=== PATIENT | female | born 1945 | race Two or more races ===

== ENCOUNTER → 2019-07-04 | Outpatient (CLI) | payer MEDICARE, OTHER | LOC: WI 11:00 | PROVIDERS: ATTEND Physician Assistant | DX: Z12.31 Encounter for screening mammogram for malignant neoplasm of breast (principal) | CPT/HCPCS: 77063; 77067 ==

== ENCOUNTER → 2019-11-01 | Outpatient (CLI) | payer MEDICARE ==
[2019-11-01 13:08] LABS: ABSOLUTE EOSINOPHILS # (AUTO) 0.5 10^3/uL (0.0-0.6); ABSOLUTE LYMPHOCYTES (AUTO) 1.6 10^3/uL (0.5-4.7); ABSOLUTE MONOCYTES (AUTO) 0.4 10^3/uL (0.1-1.4); ABSOLUTE NEUT (AUTO) 3.2 10^3/uL (1.7-8.2); BASOPHILS % (AUTO) 0.5 % (0-2); EOSINOPHILS % (AUTO) 9.2 % (0-6); HEMATOCRIT 41.1 % (36.0-47.0); HEMOGLOBIN 14.2 g/dL (12.0-15.5); LYMPHOCYTES % (AUTO) 27.6 % (13-45); MEAN CORPUSCULAR HEMOGLOBIN 33.9 pg (27.0-33.4); MEAN CORPUSCULAR HGB CONC 34.6 g/dL (32.0-36.0); MEAN CORPUSCULAR VOLUME 98 fl (80-97); MONOCYTES % (AUTO) 7.5 % (3-13); PLATELET COUNT 180 10^3/uL (150-450); RED CELL DISTRIBUTION WIDTH 14.2 % (11.5-14.0); SEGMENTED NEUTROPHILS % (AUTO) 55.2 % (42-78); TOTAL CELLS COUNTED % (AUTO) 100 %; WHITE BLOOD COUNT 5.8 10^3/uL (4.0-10.5)
[2019-11-01 13:30] LABS: ALBUMIN 4.6 g/dL (3.5-5.0); ALKALINE PHOSPHATASE 115 U/L (38-126); ANION GAP 13 (5-19); ASPARTATE AMINO TRANSFERASE 88 U/L (14-36); BILIRUBIN,DIRECT 0.4 mg/dL (0.0-0.4); BILIRUBIN,TOTAL 0.7 mg/dL (0.2-1.3); BLOOD UREA NITROGEN 17 mg/dL (7-20); CALCIUM 10.3 mg/dL (8.4-10.2); CARBON DIOXIDE 27 mmol/L (22-30); CHLORIDE 101 mmol/L (98-107); GLUCOSE 171 mg/dL (75-110); POTASSIUM 4.1 mmol/L (3.6-5.0); TOTAL PROTEIN 8.4 g/dL (6.3-8.2)
== END ==
LOC: OD 12:10
PROVIDERS: ATTEND Orthopaedic Surgery Hand Surgery
DX: I10 Essential (primary) hypertension (principal); Z11.2 Encounter for screening for other bacterial diseases; E11.9 Type 2 diabetes mellitus without complications
CPT/HCPCS: 36415; 80053; 83036; 85025; 87070

== ENCOUNTER → 2020-06-14 | Outpatient (CLI) | payer MEDICARE ==
--- NOTE | 2020-06-15 17:57 | RADIOLOGY REPORT (SQ) ---
EXAM DESCRIPTION: MRI RT UPPER JOINT WITHOUT IMAGES COMPLETED DATE/TIME: 06/14/2020 7:50 am REASON FOR STUDY: PAIN IN R SHOULDER M25.511 PAIN IN RIGHT SHOULDER COMPARISON: None. TECHNIQUE: Right shoulder images acquired and stored on PACS. Multiplanar imaging to include fat sen sitive sequences such as T1, water sensitive sequences such as FST2/STIR, cartilage sensitive sequenc es such as FSPD/gradient-echo sequences. LIMITATIONS: None. FINDINGS: BONE MARROW AND CORTEX: No worrisome bone lesions or marrow replacement. No occult fractur es. JOINT OR BURSAL EFFUSION: Small intra and extra-articular effusion. GLENO-HUMERAL ARTICULATION: Superior migration of the humeral head with respect to the glenoid. No s ignificant cartilaginous loss. ACROMION AND AC JOINT: Type 1 acromion presumed previous surgical resection of the distal clavicle. ROTATOR CUFF AND INTERVAL: Complete full-thickness tear of the supraspinatus with retraction to the l evel of the glenoid. Involvement of the superior infraspinatus. Subscapularis appears intact. No rotator interval tear. No rotator interval thickening to suggest adhesive capsulitis. LABRUM AND BICEPS LABRAL COMPLEX: Degenerative changes of the labrum. Distal biceps in its normal anatomic location. REMAINDER OF LABRUM AND IGHL : No gross tear or paralabral cyst formation. Labral evaluation is less than optimal without joint distention. No thickening of IGHL to suggest adhesive capsulitis. PERIARTICULAR AND ADJACENT SOFT TISSUES: No masses or abnormal nodes. OTHER: Signal artifact from prior surgery. IMPRESSION: Complete full-thickness tear of the supraspinatus extending to the superior infraspinatu s. Generalize cuff muscle atrophy. Superior migration of the humeral head with respect to the glenoid. TECHNICAL DOCUMENTATION: JOB ID: [id number] 2010 [employer]- All Rights Reserved Reading location - IP/workstation name: [email or web address]
== END ==
LOC: RAD 06:40
PROVIDERS: ATTEND Specialist/Technologist Athletic Trainer
DX: M75.121 Complete rotator cuff tear or rupture of right shoulder, not specified as traumatic (principal); M62.511 Muscle wasting and atrophy, not elsewhere classified, right shoulder; M25.511 Pain in right shoulder

== ENCOUNTER → 2020-06-15 | Outpatient (CLI) | payer MEDICARE ==
--- NOTE | 2020-06-15 08:32 | RADIOLOGY REPORT (SQ) ---
EXAM DESCRIPTION: MRI CERVICAL SPINE WITHOUT IMAGES COMPLETED DATE/TIME: 06/15/2020 7:57 am REASON FOR STUDY: CERVICAL RADICULOPATHY M54.12 RADICULOPATHY, CERVICAL REGION COMPARISON: None. TECHNIQUE: Sagittal and Axial imaging includes T1, T2, STIR and gradient echo sequences. LIMITATIONS: None. FINDINGS: ALIGNMENT: There is reversal of the normal cervical lordosis. Very slight anterolisthesis of C7 on T1. VERTEBRAE: Intact. BONE MARROW: Normal. No marrow replacement or reactive changes. DISCS: Loss of height and signal throughout the cervical spine. HARDWARE: None in the spine. CORD AND BASE OF BRAIN: Normal in size and signal intensity. SOFT TISSUES: No soft tissue masses. C1-C2: No significant spinal stenosis. C2-C3: No significant spinal stenosis or exit foraminal stenosis. C3-C4: Broad-based disc/osteophyte complex. No central stenosis. There is bilateral foraminal narro wing left slightly greater than right. C4-C5: Broad-based disc/osteophyte complex. No significant central canal stenosis. No significant f oraminal narrowing. C5-C6: Broad-based disc/osteophyte complex resulting in mild central stenosis. There is bilateral fo raminal stenosis. C6-C7: Broad-based disc/osteophyte complex. Mild effacement anterior thecal sac. No significant miki tral canal narrowing. Mild asymmetric narrowing of the right neural foramina. C7-T1: No significant spinal stenosis or exit foraminal stenosis. UPPER THORACIC: Incompletely imaged. No significant spinal stenosis or exit foraminal stenosis. OTHER: No other significant finding. IMPRESSION: 1. Multilevel spondylosis. There is reversal of the normal cervical lordosis. 2. Broad-based disc/ osteophyte complex at C3-4 with bilateral foraminal narrowing left greater than right. 3. Broad-based disc/ osteophyte complex at C5-C6 with bilateral foraminal stenosis. There is mild c entral stenosis. 4. Broad-based disc/ osteophyte complex at C6-7 with asymmetric narrowing of the right neural forami na. TECHNICAL DOCUMENTATION: JOB ID: [id number] 2010 [employer]- All Rights Reserved Reading location - IP/workstation name: [email or web address]
== END ==
LOC: RAD 06:49
PROVIDERS: ATTEND Physician Assistant
DX: M54.12 Radiculopathy, cervical region (principal); M48.02 Spinal stenosis, cervical region; M47.892 Other spondylosis, cervical region; M25.78 Osteophyte, vertebrae
CPT/HCPCS: 72141

== ENCOUNTER → 2020-07-05 | Outpatient (CLI) | payer MEDICARE ==
--- NOTE | 2020-07-05 09:06 | WOMENS IMAGING REPORT ---
EXAM DESCRIPTION: BILAT SCREENING MAMMO W/CAD IMAGES COMPLETED DATE/TIME: 07/05/2020 8:22 am REASON FOR STUDY: Z12.31 ENCNTR SCREEN MAMMOGRAM FOR MALIGNANT NEOPLASM OF BREAST Z12.31 ENCNTR SCR EEN MAMMOGRAM FOR MALIGNANT NEOPLASM OF JAMIA COMPARISON: 2019 EXAM PARAMETERS: Standard craniocaudal and mediolateral oblique views of each breast recorded using digital acquisition. Read with the assistance of CAD. .[facility] - [employer] Associate Sales Version 9.2 LIMITATIONS: None. FINDINGS: Findings present which are benign by mammographic criteria. No suspicious masses, calcifi cations or architectural distortion. Pertinent benign findings: Fibrocystic change. Benign mammographic findings may include one or more of the following: Smooth masses, popcorn/rim/co arse calcifications, asymmetries, post-procedure changes, and lesions with long-standing stability. IMPRESSION: BENIGN MAMMOGRAPHIC FINDINGS. BIRADS 2 BREAST DENSITY: b. There are scattered areas of fibroglandular density. BIRAD: ASSESSMENT: 2 BENIGN FINDING(S) RECOMMENDATION: ROUTINE SCREENING COMMENT: The patient has been notified of the results by letter per [facility] requirements. Additional no tification policies are in place for contacting patient with suspicious or incomplete findings. Quality ID #[id number]: The [employer] recommends an annual screening mammogram for women aged 40 years or over. This facility utilizes a reminder system to ensure that all patients receive reminder letters, and/or direct phone calls for appointments. This includes reminders for routine scr eening mammograms, diagnostic mammograms, or other Breast Imaging Interventions when appropriate. Th is patient will be placed in the appropriate reminder system. TECHNICAL DOCUMENTATION: FINDING NUMBER: (1) ASSESSMENT: (1) JOB ID: [id number] 2010 [employer]- All Rights Reserved Reading location - IP/workstation name: [email or web address]
--- OUTSIDE RECORDS SUMMARY | 2020-07-06 15:02 | XMS REPORT ---
:1945 [facility] [address] [place] [address] Care Team Providers Name Role Phone Eva Chauhan Primary Care Physician Unavailable Latonia BRIGGS Attending Clinician Unavailable Juno PAC Attending Clinician Unavailable Twan ROBLERO Attending Clinician Unavailable MD Lavonne Webb Attending Clinician Unavailable MD Lavonne Webb Attending Clinician Unavailable Feliberto Attending Clinician Unavailable MIGUEL MADERA Attending Clinician Unavailable PERFECTO POLLARD Attending Clinician Unavailable MD Lavonne Webb Admitting Clinician Unavailable Allergies, Adverse Reactions, Alerts Allergy Name Allergy Status Severity Reaction(s) Onset Inactive Treat ing Comments Type Date Date Clinician Tapentadol Propensity Active Rash to adverse 2-11 reactions 00:00: to drug 00 TAPE, Drug Active Unknown OCCLUSIVE allergy 1-23 ADHESIVE 00:00: 00 Latex Propensity Active Moderate Rash 0 to adverse 7-14 reactions 00:00: to drug 00 Adhesive Propensity Active Moderate Rash Adh esive Tape-Silicon to adverse 5-04 tapeSkin es reactions 00:00: thin, to drug 00 prone to skin tea r Medications Ordered Filled Start Stop Current Ordering Indication Dosage Frequency Signature Comments Components Medication Medication Date Date Medication? Clinician (SIG) Name Name lactated 2020- No at 30 Ringers 306 04-05 mL/hr, infusion 08:45: 09:50 Intravenou 00 :00 s, Continuous , Starting Thu10/28/19 at 0845, For 30 days, Pre-op glucagon 0 No 1mg 1 mg, (GLUCAGEN) 3 Intramuscu injection 1 08:39: lar, As mg 15 Directed, Low blood sugar, Per Hypoglycem ia Protocol, Starting Thu10/28/19 at 0839
Gi ve if BG < 70 (or < 80 with hypoglycem ia symptoms) and NPO with NO IV access.
dextrose 0 No 12.5g 12.5-25 g, 50% in 10-27 Intravenou water 08:39: s, As solution 15 Directed, 12.5-25 g Per Hypoglycem ia Protocol, Starting Thu10/28/19 at 0839
If BG < 70 (or < 80 with hypoglycem ia symptoms) and patient is NPO or limited PO, give 12.5 g for BG >= 50 or 25 g for BG < 50.
ciprofloxac 2020-0 2020- No 500mg Q.5D Take 1 in HCl 10-27 03-11 tablet (CIPRO) 500 00:00: 23:59 (500 mg MG tablet 00 :00 total) by mouth 2 (two) times daily for 5 days calcium 2020-0 Yes Take by luz vazquez- -13 mouth vitamin D3 10:13: 105-120 07 mg-unit Tab cyanocobala 2020-0 Yes Take by min-salcapr -13 mouth ozat sod 10:13: 1,000-100 07 mcg-mg Tab glucosamine 2020-0 Yes Take by sulfate 500 1-13 mouth mg Tab 10:13: 07 ipratropium 2020-0 Yes Q.25D Inhale -albuterol 1-13 into the (COMBIVENT 10:13: lungs 4 RESPIMAT) 07 (four) 20-100 times mcg/actuati daily as on inhaler needed mesalamine 2020-0 Yes Q.5D Take by (LIALDA) 1-13 mouth 2 1.2 gram EC 10:13: (two) tablet 07 times daily calcium 2020-0 Yes Take by carbonate 1-13 mouth 500 mg 10:13: calcium 07 (1,250 mg) tablet cholecalcif 2020-0 Yes Take by polina 1-13 mouth (VITAMIN 10:13: D3) 1,000 07 unit tablet levothyroxi 2020-0 Yes Takes ne 1-13 200mcg (SYNTHROID) 10:13: daily 200 MCG 07 tablet traZODone 2020-0 Yes Take by (DESYREL) 1-13 mouth 50 MG 10:13: tablet 07 olopatadine 2020-0 Yes 1[drp] QD 1 drop (PATADAY) 1-13 once daily 0.2 % 10:13: ophthalmic 07 solution cycloSPORIN 2020-0 Yes 1[drp] Q.5D Place 1 E 09-05 drop into (RESTASIS) 10:13: both eyes 0.05 % 07 2 (two) ophthalmic times emulsion daily teriparatid 2020- No Inject e (FORTEO) 09-05 subcutaneo 20 mcg/dose 10:13: 00:00 usly - 600 07 :00 mcg/2.4 mL pen injector diclofenac 2020- No 1[drp] Q.25D 1 drop 4 (VOLTAREN) 09-05 (four) 0.1 % 10:13: 00:00 times ophthalmic 07 :00 daily solution apixaban Yes TAKE 1 (ELIQUIS) 5 1-07 TABLET BY mg tablet 00:00: MOUTH TWO 00 TIMES DAILY FUROsemide Yes Takes if (LASIX) 40 1-07 ankles MG tablet 00:00: swollen 00 JARDIANCE 2019-0 Yes QD every 25 mg Tab 1- morning tablet 00:00: 00 digoxin 2018-08 Yes TAKE 1 (LANOXIN) 0-31 TABLET BY 0.125 MG 00:00: MOUTH tablet 00 DAILY pyridostigm 2018-08 2020- No Q.5D Take by ine 0-28 28 mouth 2 (MESTINON) 00:00: 23:59 (two) 60 mg 00 :00 times tablet daily carvedilol 2018- Yes Take by (COREG) 25 9-10 mouth 2 MG tablet 00:00: (two) 00 times daily with meals niacin 2018- Yes Take by (NIASPAN) 9-10 mouth 500 MG ER 00:00: tablet 00 potassium 2018-0 Yes Q.5D Take by chloride 9-10 mouth 2 (KLOR-CON) 00:00: (two) 10 mEq ER 00 times tablet daily simvastatin 2018-0 Yes QD Take by (ZOCOR) 40 9-10 mouth MG tablet 00:00: nightly 00 SITagliptin 2018-0 Yes Take by (JANUVIA) 3-04 mouth 100 MG 00:00: tablet 00 lisinopril 2018-0 Yes QD Take by (ZESTRIL) 2-11 mouth 20 MG 00:00: every tablet 00 morning albuterol 2017-0 Yes Q6H Inhale 90 8-31 into the mcg/actuati 00:00: lungs on inhaler 00 every 6 (six) hours as needed metFORMIN 2016-08 Yes Take by (GLUCOPHAGE 1-18 mouth 2 ) 1000 MG 00:00: (two) tablet 00 times daily with meals azelastine 2016-08 Yes 1 Drop (OPTIVAR) 1-15 twice a 0.05 % 00:00: day. ophthalmic 00 solution insulin Yes Q.5D Inject GLARGINE subcutaneo (BASAGLAR usly 2 KWIKPEN) (two) pen times injector daily (concentrat Patient ion 100 takes 10 units/mL) units twice daily. insulin No QD Inject GLARGINE subcutaneo (BASAGLAR usly KWIKPEN) nightly pen injector (concentrat ion 100 units/mL) Problems This patient has no known problems. Procedures Procedure Date / Time Performed Performing Clinician Shannon gibbs THERAPEUTIC EXERCISES 2020-06-25 11:00:00 THERAPEUTIC ACTIVITIES 2020-06-25 11:00:00 MECHANICAL TRACTION THERAPY 2020-06-25 11:00:00 MANUAL THERAPY 2020-06-25 11:00:00 MANUAL THERAPY 2020-06-22 08:30:00 MECHANICAL TRACTION THERAPY 2020-06-22 08:30:00 THERAPEUTIC EXERCISES 2020-06-22 08:30:00 OFFICE/OUTPATIENT VISIT, EST 2020-06-20 08:45:00 MANUAL THERAPY 2020-05-25 09:00:00 THERAPEUTIC EXERCISES 2020-05-25 09:00:00 THERAPEUTIC EXERCISES 2020-05-21 08:30:00 MANUAL THERAPY 2020-05-21 08:30:00 THERAPEUTIC ACTIVITIES 2020-05-21 08:30:00 MECHANICAL TRACTION THERAPY 2020-05-21 08:30:00 MECHANICAL TRACTION THERAPY 2020-05-17 09:00:00 THERAPEUTIC ACTIVITIES 2020-05-17 09:00:00 THERAPEUTIC EXERCISES 2020-05-17 09:00:00 MANUAL THERAPY 2020-05-17 09:00:00 THERAPEUTIC EXERCISES 2020-05-14 09:00:00 MANUAL THERAPY 2020-05-14 09:00:00 THERAPEUTIC EXERCISES 2020-05-11 10:00:00 MANUAL THERAPY 2020-05-11 10:00:00 THERAPEUTIC ACTIVITIES 2020-05-11 10:00:00 MANUAL THERAPY 2020-05-08 08:30:00 THERAPEUTIC EXERCISES 2020-05-08 08:30:00 THERAPEUTIC EXERCISES 2020-05-02 11:00:00 PT Evaluation, Mod Complexity 2020-05-02 11:00:00 THERAPEUTIC ACTIVITIES 2020-05-02 11:00:00 OFFICE/OUTPATIENT VISIT, EST 2020-04-10 09:00:00 Preop H\\T\\P 2020-01-04 09:00:00 REQUEST TO STORE OUTSIDE IMAGES 2019-11-03 09:36:11 [place] [place] POC GLUCOSE WHOLE BLOOD 2019-10-28 10:51:00 [place] [place] [id number] 09:52:06 [place] [place] POC GLUCOSE WHOLE BLOOD 2019-10-28 08:48:00 [place] [place] [id number] 00:00:[address] DUAL PANCREAS PROTOCOL INCL CT 2019-10-14 08:02:08 Yeyo Turpin ABD ONLY WITH CONTRAST POC CREATININE 2019-10-14 07:42:00 [facility] [place] OFFICE/OUTPATIENT VISIT, NEW 2019-09-15 08:55:00 Results Test Description Test Time Test Comments Text Results Atomic Results Result Comments REQUEST TO STORE OUTSIDE 2019-11-03 09:41:50 Please re rhys to the appropriate IMAGES PACS to view images. REQUEST TO STORE OUTSIDE 2019-11-03 09:41:50 Please re rhys to the appropriate IMAGES PACS to view images. CT abdomen reference only 2019-11-03 09:37:24 This ord er has been auto-finalized. Please see additional clinical documentation for result rep ort. CT abdomen reference only 2019-11-03 09:37:24 This ord er has been auto-finalized. Please see additional clinical documentation for result rep ort. POC Glucose Whole Blood 2019-10-28 10:52:00 Test Item Value Reference Range Comments POC Glucose (test code = 35049-4) 226 mg/dL 70-140 ALERT VALUES <50 or >250 Others <70 or >3 50 Performed at patient care sit e; overseen by [facility] POCT progra m REFERENCE RANGES Above is NONFASTING. Below are FASTING: NOR MAL: 70-99 mg/dL PRED IABETES: 100-125 mg/dL DIABETES: > 125 mg/dL Ranges for neonates are dependent on ges tational age and weight. DEN (test code = DEN) Lab Interpretation (test code = Abnormal 52210-1) US UPPER GI ENDOSCOPY [id number] 09:52:06Procedure result and any important imaging findings are described in associated clinical documentation. To view images from this procedure, please click the image viewer link.Interface, External Ris In- 10/28/2019 10:42 AM ESTProcedure result and any important imaging findings are described in associated clinical documentation. To view images from this procedure, please click the image viewer link.POC Glucose Whole [id number] 08:49:00 Test Item Value Reference Range Comments POC Glucose (test code = 230 mg/dL 70-140 ALERT V ALUES <50 [place] 42500-7) >250 Others <70 or >350 Performed at [facility] site; overseen b y [facility] POCT program REFERENC E RANGES Above is NONFAST ING. Below are FASTING: NOR MAL: 70-99 mg/dL P REDIABETES: 100-125 mg/dL DIABETES: > 125 mg/dL R anges for neonates are dep endent on gestational age and weight. DEN (test code = DEN) Lab Interpretation (test code = Abnormal 45009-4) CT dual pancreas protocol incl CT abd only with [id number] 18:59:18CT abdomen with IV contrast. Comparison: None. Indication: Pancreatic cyst/pseudo cyst, follow up, D13.6 Benign neoplasmof pancreas. 74 y.o. female w/ PMHx significant for pancreatic cystadenoma(on prior EUS at [facility]). Technique: CT imaging of the abdomen was performed with IV contrast. Therewas pancreatic arterial and portal venous phase imaging of the abdomen. Iodinated contrast was used due to the indications for the examination, toimprove anatomic localization and optimize lesion detection.Findings: Limited images of the lower thorax are notable for bibasilar subsegmentalatelectasis/scarring. No significant pleural or pericardial effusion. The liver is normal in size and mildly nodular in contour, withoutworrisome focal lesions. No biliary ductal dilatation. The opacifiedportions of theportal, hepatic, and splenic veins are patent. Thegallbladder is notable for cholelithiasis. The spleen is unremarkable.Nonspecific nodular thickening of the bilateral adrenal glands is seen. The kidneys enhance symmetrically without hydronephrosis. A tinynonobstructing stone is seen in the lower poleof the right kidney.Scattered subcentimeter low-attenuation renal lesions are seen, too smallto characterize. The partially imaged small bowel is decompressed. Thepartially imaged colon is unremarkable. No significant free fluid. No free intraperitoneal air. No pathologic abdominal lymphadenopathy is seen. The aorta is calcified butnormal in caliber, with patent major branch vessels. No aggressiveappearing osseous lesions are seen. Degenerative changes are seen in thespine. In the tail of the pancreas, there is a rounded, solid, hypoenhancing massmeasuring 3.8 x 3.3 cm on series 3 image 34. There is associated minimalupstream biliary ductal dilatation in the tail the pancreas related to thismass. Local staging for pancreatic lesion: * Celiac axis: Not involved.* Common hepatic artery: Not involved.* Superior mesenteric artery: Not involved.* Arterial anatomic variants: None.* Portal vein/superior mesenteric vein: Not involved.* Splenic vein: Patent.* Pancreatic duct measures 1 mm in the head, 1 mm in the body, and 2-3 mmin the tail. Impression:In the tail of the pancreas, there is a rounded, solid, hypoenhancing massmeasuring up to 3.8 cm causing very mild upstream biliary ductaldilatation. Per reports in Care Everywhere, a lesion was present in thislocation on CT dated 10/20/2017 measuring up to 3.2 cm, which was statuspost EUS in 2017 with cytology suggestive of, but not definitive for, aserous cystadenoma. On the current imaging study alone, the lesion isindeterminate and amucinous lesion or adenocarcinoma is not excluded.Recommend correlation with outside prior studies to document stability,versus further evaluation with dedicated MRI. Electronically Reviewed by: Clara Brothers MD, [facility]ron[facility] Reviewed on: 10/14/2019 10:23 AM I have reviewed the images and concur with the above findings. Electronically Signed by: Song Faust MD, [facility] Signed on: 10/14/2019 6:59 PMInterface, Rad Results In - 10/14/2019 7:00 PM ESTCT abdomenwith IV contrast. Comparison: None. Indication: Pancreatic cyst/pseudo cyst, follow up, D13.6 Benignneoplasm of pancreas. 74 y.o. female w/ PMHx [facility]: CT imaging of the abdomen was performed with IV contrast. There was pancreaticarterial and portal venous phase imaging of the abdomen. Iodinated contrast was used due to the indications for the examination, to improve anatomic localization and optimize lesion detection. Findings: Limited images of the lower thorax are notable for bibasilar subsegmental atelectasis/scarring. No significant pleural or pericardial effusion. The liver is normal in size and mildly nodular in contour, without worrisome focal lesions. No biliary ductal dilatation. The opacified portions of the portal, hepatic, and splenic veins are patent. The gallbladder is notable for cholelithiasis. The spleen is unremarkable. Nonspecific nodular thickening of the bilateral adrenal glands is seen. The kidneys enhance symmetrically without hydronephrosis. A tiny nonobstructing stone is seen in the lower pole of the right kidney. Scattered subcentimeter low-attenuation renal lesions are seen, too small to characterize. The partially imaged small bowel is decompressed. The partially imaged colon is unremarkable. No significant free fluid. No free intraperitoneal air. No pathologic abdominal lymphadenopathy is s een. The aorta is calcified but normal in caliber, with patent major branch vessels. No aggressive appearing osseous lesions are seen. Degenerative changes are seen in the spine. In the tail of the pancreas, there is a rounded, solid, hypoenhancing mass measuring 3.8 x 3.3 cm on series 3 image 34. There is associated minimal upstream biliary ductal dilatation in the tail the pancreas related to this mass. Local staging for pancreatic lesion: * Celiac axis: Not involved. * Common hepatic artery: Not involved. * Superior mesenteric artery: Not involved. * Arterial anatomic variants: None. * Portal vein/superior mesenteric vein: Not involved. * Splenic vein: Patent. * Pancreatic duct measures 1 mm inthe head, 1 mm in the body, and 2-3 mm in the tail. Impression: In the tail of the pancreas, there is a rounded, solid, hypoenhancing mass measuring up to 3.8 cm causing very mild upstream biliary ductal dilatation. Per reports in Care Everywhere, a lesion was present in this location on CT dated 10/20/2017 measuring up to 3.2 cm, which was status post EUS in 2017 with cytology suggestive of, but not definitive for, a serous cystadenoma. On the current imaging study alone, the lesion is indeterminateand a mucinous lesion or adenocarcinoma is not excluded. Recommend correlation with outside prior danyell dies to document stability, versus further evaluation with dedicated MRI. Electronically Reviewed by: Clara Brothers MD, [facility] Electronically Reviewed on: 10/14/2019 10:23 AM I have reviewed the images and concur with the above findings. Electronically Signed by: Song Faust MD, [facility] E lectronically Signed on: 10/14/2019 6:59 PMPOC [id number] 07:44:00 Test Item Value Reference Range Comments POC Creatinine (test code = 86860385) 0.8 mg/dL 0.7-1.4 DEN (test code = DEN) Lab Interpretation (test code = 41323-6) Normal Assessments Condition Name Status Diagnosis Date Treating Clinici an Cervicalgia Active Low back pain Active Muscle weakness (generalized) Active Difficulty in walking, not elsewhere Active classified Cervicalgia Active Low back pain Active Muscle weakness (generalized) Active Difficulty in walking, not elsewhere Active classified Unsp rotatr-cuff tear/ruptr of right Active shoulder, not trauma Pain in right shoulder Active Other cervical disc degeneration, unsp Active cervical region Cervicalgia Active Cervicalgia Active Low back pain Active Muscle weakness (generalized) Active Difficulty in walking, not elsewhere Active classified Cervicalgia Active Low back pain Active Muscle weakness (generalized) Active Difficulty in walking, not elsewhere Active classified Cervicalgia Active Low back pain Active Muscle weakness (generalized) Active Difficulty in walking, not elsewhere Active classified Cervicalgia Active Low back pain Active Muscle weakness (generalized) Active Difficulty in walking, not elsewhere Active classified Cervicalgia Active Low back pain Active Muscle weakness (generalized) Active Difficulty in walking, not elsewhere Active classified Cervicalgia Active Low back pain Active Muscle weakness (generalized) Active Difficulty in walking, not elsewhere Active classified Cervicalgia Active Low back pain Active Muscle weakness (generalized) Active Difficulty in walking, not elsewhere Active classified Low back pain Active Cervicalgia Active Other cervical disc degeneration, unsp Active cervical region Other intervertebral disc degeneration, Active lumbar region Primary osteoarthritis, unspecified hand Active 0 Primary osteoarthritis, unspecified hand Active 0 Unspecified atrial fibrillation Active Primary osteoarthritis, right hand Active Pain in right hand Active Type 2 diabetes mellitus without Active complications Primary osteoarthritis, unspecified hand Active 0 Primary osteoarthritis, unspecified hand Active 0 Primary osteoarthritis, right hand Active Pain in right hand Active Type 2 diabetes mellitus without Active complications Unspecified atrial fibrillation Active Encounters Start End Encounter Admission Attending Care Care Encounter Date/Time Date/Time Type Type Clinicians Facility Department ID 2020-06-25 2020-06-25 Outpatient [facility] [id number] 11:00:00 11:00:00 PT, [facility] [id number] \\T\\ Sports [id number] Medicine NB [id number] 2020-06-22 2020-06-22 Outpatient [facility] [id number] 08:30:00 08:30:00 PT, [facility] [id number] \\T\\ Sports [id number] Medicine NB [id number] 2020-06-20 2020-06-20 Outpatient [facility] [id number] 08:45:00 08:45:00 [facility] [id number] \\T\\ Sports [id number] Medicine NB [id number] 2020-05-25 2020-05-25 Outpatient [facility] [id number] 09:00:00 09:00:00 PT, [facility] [id number] \\T\\ Sports [id number] Medicine NB [id number] 2020-05-21 2020-05-21 Outpatient [facility] [id number] 08:30:00 08:30:00 PT, [facility] [id number] \\T\\ Sports [id number] Medicine NB [id number] 2020-05-17 2020-05-17 Outpatient [facility] [id number] 09:00:00 09:00:00 PT, [facility] [id number] \\T\\ Sports [id number] Medicine NB [id number] 2020-05-14 2020-05-14 Outpatient [facility] [id number] 09:00:00 09:00:00 PT, [facility] [id number] \\T\\ Sports [id number] Medicine NB [id number] 2020-05-11 Outpatient [facility] [id number] 10:00:00 10:00:00 PT, [facility] [id number] \\T\\ Sports [id number] Medicine NB [id number] 2020-05-08 2020-05-08 Outpatient [facility] [id number] 08:30:00 08:30:00 PT, [facility] [id number] \\T\\ Sports [id number] Medicine [id number] 2020-05-02 2020-05-02 Outpatient [facility] [id number] 11:00:00 11:00:00 PT, [facility] [id number] \\T\\ Sports [id number] Medicine [id number] 2020-04-10 2020-04-10 Outpatient [facility] [id number] 09:00:00 09:00:00 PAC, [facility] [id number] \\T\\ Sports [id number] Medicine [id number] 2020-01-12 Valencia Weller [facility] 200 [id number] 05:46:21 10:44:00 Valencia Webb 2020-01-08 2020-01-09 Valencia Weller [facility] 200 [id number] 07:27:50 23:59:59 Valencia Webb 2020-01-04 2020-01-05 Valencia Weller [facility] 200 [id number] 07:53:14 23:59:59 Valencia Webb 2020-01-04 2020-01-04 Outpatient Rogerio Dao [facility] AA [id number] 09:00:00 09:00:00 Orthopedics [id number] \\T\\ Sports [id number] Medicine [id number] 2019-11-08 Valencia Weller [facility] 200 [id number] 11:47:35 23:59:59 Valencia Webb 2019-11-03 2019-11-03 Outpatient APRIL MADERA [id number] 09:30:54 23:59:00 TATO 2019-11-03 2019-11-03 Outpatient [facility] [id number] 00:00:00 00:00:00 2019-11-03 2019-11-03 Outpatient [facility] [id number] 00:00:00 00:00:00 2019-10-28 2019-10-28 Outpatient APRIL MADERA [facility] [id number] 07:39:03 12:15:00 TATO 2019-10-28 2019-10-28 Outpatient [facility] [id number] 09:50:40 09:50:40 2019-10-28 2019-10-28 Outpatient [facility] [id number] 00:00:00 00:00:00 2019-10-27 2019-10-27 Outpatient PAOLA [facility] [id number] 00:00:00 00:00:00 2019-10-21 2019-10-21 Outpatient APRIL [facility] [id number] 12:42:33 12:42:33 2019-10-19 2019-10-19 Outpatient APRIL MADERA [facility] [id number] 00:00:00 00:00:00 TATO 2019-10-14 2019-10-14 Outpatient APRIL POLLARD [facility] [id number] 09:59:04 11:41:14 JOHNNY 2019-10-14 2019-10-14 Outpatient APRIL MADERA [id number] 06:58:23 06:58:23 TATO 2019-10-12 2019-10-12 Outpatient APRIL [facility] [id number] 00:00:00 00:00:00 2019-09-15 2019-09-15 Outpatient Rogerio Dao [facility] 29 [id number] 08:55:00 08:55:00 Orthopedics [id number] \\T\\ Sports [id number] Medicine NB [id number] 2019-09-05 2019-09-05 Outpatient APRIL MADERA [facility] [id number] 09:54:40 09:54:40 TATO 2019-09-05 2019-09-05 Outpatient [facility] [id number] 00:00:00 00:00:00 2019-09-01 2019-09-01 Outpatient [facility] [id number] 12:53:55 12:53:55 Immunizations Ordered Immunization Filled Immunization Date Status Commen ts Refusal Reason Name Name Influenza IIV4, IM 2019-04-20 Completed preservative 5Yr+ 00:00:00 Tdap 2016-05-24 Completed 00:00:00 Payers Payer Name Policy Type Policy Number Effective Date Expiration D ate Plan of Treatment Planned Activity Planned Date Details Comments Future Scheduled Test [code = ] Future Scheduled Test [code = ] Future Scheduled Test [code = ] Future Scheduled Test [code = ] Future Scheduled Test [code = ] Future Scheduled Test [code = ] Future Scheduled Test [code = ] Future Scheduled Test [code = ] Future Scheduled Test [code = ] Future Scheduled Test [code = ] Future Scheduled Test [code = ] Future Scheduled Test [code = ] Future Scheduled Test [code = ] Future Scheduled Test [code = ] Future Scheduled Test [code = ] Future Scheduled Test [code = ] Future Scheduled Test [code = ] Future Scheduled Test [code = ] Future Scheduled Test [code = ] Future Scheduled Test [code = ] Future Scheduled Test [code = ] Future Scheduled Test [code = ] Future Scheduled Test [code = ] Future Scheduled Test [code = ] Future Scheduled Test [code = ] Future Scheduled Test [code = ] Social History Social Habit Start Date Stop Date Comments History SDOH Alcohol Binge Cigarettes smoked current (pack per 2019-10-21 00:00:00 00:00:00 day) - Reported Cigarette pack-years 2019-10-21 00:00:00 2019-10-21 00:00:00 Alcohol intake 2019-10-21 00:00:00 2019-10-21 00:00:00 History SDOH Alcohol Frequency 2019-10-14 00:00:00 2019-10-14 00 :00:00 History SDOH Alcohol Std Drinks 2019-10-14 00:00:00 2019-10-14 0 0:00:00 Smoking Status Start Date Stop Date Former smoker 2019-10-21 00:00:00 2019-10-21 00:00:00 History of tobacco use 1999-10-14 00:00: 00 Vital Signs Vital Name Observation Time Observation Value Comments Systolic blood pressure 2019-10-28 11:50:00 116 mm[Hg] Diastolic blood pressure 2019-10-28 11:50:00 68 mm[Hg] Heart rate 2019-10-28 11:50:00 55 /min Respiratory rate 2019-10-28 11:50:00 21 /min Oxygen saturation in Arterial blood by 2019-10-28 11:50:00 97 % Pulse oximetry Body temperature 2019-10-28 10:48:00 36.11 Elizabeth Body height 2019-10-28 08:35:00 167.6 cm Body weight 2019-10-28 08:35:00 109.77 kg BMI 2019-10-28 08:35:00 39.06 kg/m2 Body height 2019-10-21 11:49:00 167.6 cm Body weight 2019-10-21 11:49:00 109.77 kg BMI 2019-10-21 11:49:00 39.06 kg/m2 Systolic blood pressure 2019-10-14 10:16:00 123 mm[Hg] Diastolic blood pressure 2019-10-14 10:16:00 55 mm[Hg] Heart rate 2019-10-14 10:16:00 82 /min Respiratory rate 2019-10-14 10:16:00 18 /min Body height 2019-10-14 10:16:00 167.6 cm Body weight 2019-10-14 10:16:00 113.2 kg BMI 2019-10-14 10:16:00 40.28 kg/m2 Oxygen saturation in Arterial blood by 2019-10-14 10:16:00 99 % Pulse oximetry Systolic blood pressure 2019-09-05 09:55:00 112 mm[Hg] Diastolic blood pressure 2019-09-05 09:55:00 46 mm[Hg] Heart rate 2019-09-05 09:55:00 89 /min Body temperature 2019-09-05 09:55:00 37 Elizabeth Body height 2019-09-05 09:55:00 167.6 cm Body weight 2019-09-05 09:55:00 111.8 kg BMI 2019-09-05 09:55:00 39.78 kg/m2 Hospital Discharge Instructions Instructions Liv Lieberman RN - 10/28/2019Thank you for choosing [facility] ([facility]) for your health care. We care about you and we want to provide you with helpful information: Note: If you are experiencing a medical emergency or need urgent medical care, call [phone] immediately. GI [phone], option 1 Thursday through Thursday 8:00 a.m. 5:00 p.m. ? To schedule, reschedule, orcancel your GI appointment, please call , option 1. If you are unable to come to an appointment, please notify us as soon as possible, preferably 24 hours in advance. This allows other patients with urgent needs to be cared for quicker. GI Nurse , option 6 Thursday through Thursday 8:00 a.m. 4:30 p.m. ? For urgent medical concerns after hours or on holidays, call and ask to speak to the GI Fellow nursing education consultant. ? If you have a GI medical question or symptom concern and would like to speak to your provider's healthcare team, please call the GI Nurse at , option 6. For routine questions, please send the GI healthcare team a message through [facility] at [email or web address]. Prescription Refill Requests ? Please contact your pharmacy. ? To request prescription refills, please contact your pharmacy or send your healthcare team a message through[facility] account at [email or web address]. Forms, Letters, Medical Records Call , option 5 ? For questions related to forms, letters, or medical records, please call , option 5 for assistance. External Results or Medical Records ? Fax all external results for labs, radiology or any test ordered by your [facility] provider to Test Results ? Test results may take up to 14 days to be completed. If you have a [facility] account, your new results and a provider message will be sent to you through your [facility] account at [email or web address] ? If youdo not have [facility], your test result letter will be mailed to you, which may extend this notification time. Your health care team will contact you by telephone if your results require additional follow up. ? Test Result Information: ? Blood test results - expect to receive your results within 5-7 business days ? Stool Tests - expect to receive your results within 5-7 business days ? Pathology Results - expect to receive your pathology results within 14 business days ? Procedure report through [facility] in 3 days Advance Directives and End of Life Planning ? You can access information and forms for Advance Directives and End of Life Planning by logging in to your [facility] MY Chart [email or web address]. Select the Health icon then select Advance Directives/End of Life Planning link. Viewing and Ac cessing Your Results and Information through [facility]: ? To review your detailed pathology report, log into your [facility] Account at [email or web address] from a desktop computer. This report cannot be accessed from a smart phone or tablet. Once you have logged into your [facility] account, select "Include Hospital Results" under the Test Result Tab. At [facility], our team is committed to providing you compassionate, world-class care. You may receive a patient satisfaction survey by mail or email regarding your visit today. Your opinion is important to me. Your response benefits us a ll. AttachmentsThe following attachments cannot be sent through Care Everywhere.Ultrasound: Endoscopic (Oral): Post-op (Burundian)DISCHARGE INSTRUCTIONS FOR POST ANESTHESIA CARE ADULT-[facility] (PERSIAN)documented in this encounterPatient Instructions Jacob Hernandez RN - 10/21/2019 12:45 PM ESTFormatting of this note might bedifferent from the original. Medication instructions prior to procedure: Medication Sig INSTRUCTIONS albuterol 90 mcg/actuation inhaler Inhale into the lungs every 6 (six) hours as needed TAKE day of procedure, if needed apixaban (ELIQUIS) 5 mg tablet TAKE 1 TABLET BY MOUTH TWO TIMES DAILY last dose 10/24/19 as per machine silver stripper through PCP azelastine (OPTIVAR) 0.05 % ophthalmic solution 1 Drop twice a day. TAKE day of procedure, if needed calcium carbonate 500 mg calcium (1,250 mg) tablet Take by mouth DO NOT TAKE day of procedure calcium phos,dibas-vitamin D3 105-120 mg-unit Tab Take by mouth DO NOT TAKE day of procedure carvedilol (COREG) 25 MG tablet Take by mouth 2 (two) times daily with meals TAKE day of procedure cholecalciferol (VITAMIN D3) 1,000 unit tablet Take by mouth DO NOT TAKE day of procedure cyanocobalamin-salcaprozat sod 1,000-100 mcg-mg Tab Take by mouth DO NOT TAKE day of procedure cycloSPORINE (RESTASIS) 0.05 % ophthalmic emulsion Place 1 drop into both eyes 2 (two) times daily TAKE day of procedure, if needed digoxin (LANOXIN) 0.125 MGtablet TAKE 1 TABLET BY MOUTH DAILY TAKE day of procedure FUROsemide (LASIX) 40 MG tablet Takes if ankles swollen DO NOT TAKE day of procedure glucosamine sulfate 500 mg Tab Take by mouth DO NOT TAKE day of procedure insulin GLARGINE (BASAGLAR KWIKPEN) pen injector (concentration 100 units/mL) Inject subcutaneously 2 (two) times daily Patient takes 10 units twice daily. 80% of dose evening before and morning of ipratropium-albuterol (COMBIVENT RESPIMAT) 20-100 mcg/actuation inhaler In laird into the lungs 4 (four) times daily as needed TAKE day of procedure, if needed JARDIANCE 25mg Tab tablet every morning DO NOT TAKE day of procedure levothyroxine (SYNTHROID) 200 MCG tablet Takes 200mcg daily TAKE day of procedure lisinopril (ZESTRIL) 20 MG tablet Take by mouth every morning DO NOT TAKE day of procedure mesalamine (LIALDA) 1.2 gram EC tablet Take by mouth 2 (two)times daily TAKE day of procedure metFORMIN (GLUCOPHAGE) 1000 MG tablet Take by mouth 2 (two) times daily with meals DO NOT TAKE day of procedure niacin (NIASPAN) 500 MG ER tablet Take by mouthDO NOT TAKE day of procedure olopatadine (PATADAY) 0.2 % ophthalmic solution 1 drop once daily TAKE day of procedure, if needed potassium chloride (KLOR-CON) 10 mEq ER tablet Take by mouth 2 (two) times daily DO NOT TAKE day of procedure pyridostigmine (MESTINON) 60 mg tablet Take by mouth2 (two) times daily TAKE day of procedure, if needed simvastatin (ZOCOR) 40 MG tablet Take by mouth nightly TAKE night before procedure SITagliptin (JANUVIA) 100 MG tablet Take by mouth DO NOT TAKE day of procedure traZODone (DESYREL) 50 MG tablet Take by mouth TAKE night before procedure if needed. documented in this encounter Patient Instructions Samra Low CMA - 10/14/2019 11:00 AM ESTThank you for choosing [facility] ([facility]) for your health care. We care about you and we want to provide you with helpful information: Note: If you are experiencing a medical emergency or need urgent medical care, call [phone] immediately. GI Scheduling , option 1 Thursday through Thursday 8:00 a.m. 5:00 p.m. ? To schedule, reschedule, or cancel your GI appointment, please call , option 1. If you are unable to come to an appointment, please notify us as soon as possible, preferably 24 hours in advance. This allows other patients with urgent needs to be cared for quicker. GI Nurse , option 6 Thursday through Thursday 8:00 a.m. 4:30 p.m. ? For urgent medical concerns after hours or on holidays, call and ask to speak to the GI Fellow nursing education consultant. ? If you have a GI medical question or symptom concern and would like to speak to your provider's healthcare team, please call the GI Nurse at , option 6. For routine questions, please send the GI healthcare team a message through [facility] at [email or web address]. Prescription Refill Requests ? Please contact your pharmacy. ? To request prescription refills, please contact your pharmacy or send your healthcare team a message through your [facility] account at [email or web address]. Forms, Letters, Medical Records Call , option 5 ? For questions related to forms, letters, or medical records, please call , option 5 for assistance. External Results or Medical Records ? Fax all external results for labs, radiology or any test ordered by your [facility] provider to TestResults ? Test results may take up to 14 days to be completed. If you have a [facility] account, your new results and a provider message will be sent to you through your [facility] account at [email or web address]. ? If you do not have [facility], your test result letter will be mailed to you, which may extend this notification time. Your health care team will contact you by telephone if your results require additional follow up. ? Test Result Information: ? Blood test results - expect to receive your results within 5-7 business days ? Stool Tests - expect to receive your results within 5-7 business days ? Pathology Results - expect to receive your pathology results within 14 business days ? Procedure report through [facility] in 3 days Advance Directives and End of Life Planning ? You can access information and forms for Advance Directives and End of Life Planning by logging in to your [facility] MY Chart h [email or web address]. Select the Health icon then select Advance Directives/End of Life Planning link. Viewing and Accessing Your Results and Information through [facility]: ? To review your detailed pathology report, log into your [facility] Account at [email or web address] from a deb ktop computer. This report cannot be accessed from a smart phone or tablet. Once you have logged into your [facility] account, select "Include Hospital Results" under the Test Result Tab. At [facility], our team is committed to providing you compassionate, world-class care. You may receive a patient satisfaction survey by mail or email regarding your visit today. Your opinion is important to me. Yourresponse benefits us all. documented in this encounter
== END ==
LOC: WI 07:56
PROVIDERS: ATTEND Physician Assistant
DX: Z12.31 Encounter for screening mammogram for malignant neoplasm of breast (principal)
CPT/HCPCS: 77067